=== PATIENT | female | born 1960 | race Caucasian/White ===

== ENCOUNTER 2023-01-31 19:18 | Emergency (ER) | payer OTHER ==
[~2023-01-31] VITALS: Ht 162.6 cm; Wt 74.4 kg
[2023-01-31 19:23] VITALS: BP_SYST 123; PULSE 73; RESP 18; TEMP 97.9; O2SAT 96
--- NOTE | 2023-01-31 19:29 | NUR ---
Patient triaged and placed in waiting room. VSS and patient appears in no acute distress at this time. Accompanied by PARTNER, awaiting available bed, and MD notified of need for MSE.
--- NOTE | 2023-01-31 20:40 | NUR ---
Patient to ER bed HB1 to gown for evaluation. Side rails up. Report given to DUDLEY GREENE.
--- NOTE | 2023-01-31 20:52 | NUR ---
ER Dr. Nance at bedside examining patient.
--- NOTE | 2023-01-31 20:52 | NUR ---
Pt bib from home, ambulated to [facility] bed 1. Pt A&Ox4, able to make needs known. Pt c/o upper lip pain due to injury. Pt states tripping over dog's cage and hitting lip. Laceration noted, no active bleeding. Pt denies losing conciousness. Pt denies N/V/D. Safety precuations in place.
[2023-01-31] MEDS ORDERED: DIPHTH,PERTUSS(ACELL),TET VAC 0.5 ML VIAL (Tdap) I.M. ONE (21:30)
[2023-01-31] MEDS ORDERED: LIDOCAINE 1% 10 MG/ML, 20 ML MDV INJ ONE (21:30)
[2023-01-31 22:23] VITALS: BP_SYST 121; PULSE 70; RESP 18; TEMP 97.9; O2SAT 96
--- NOTE | 2023-01-31 22:23 | NUR ---
Patient given written and verbal discharge instructions and verbalizes understanding. ER DR OCONNOR discussed with patient the results and treatment provided. Patient in stable condition. ID arm band removed. NO Rx given. Patient educated on pain management and to follow up with PMD. Pain Scale 0/10. Opportunity for questions provided and answered. Medication side effect fact sheet provided.
== END 2023-01-31 22:23 | disposition home or self-care (01) ==
LOC: SED 19:18
DX: S01.81XA Laceration without foreign body of other part of head, initial encounter (principal); Z79.899 Other long term (current) drug therapy; W26.8XXA Contact with other sharp object(s), not elsewhere classified, initial encounter; Y93.89 Activity, other specified; Y92.89 Other specified places as the place of occurrence of the external cause; Y99.8 Other external cause status
CPT/HCPCS: 99283; 90715; 90471; 12013; J2001